=== PATIENT | female | born 1950 | race Caucasian/White ===

== ENCOUNTER 2016-11-17 04:50 | Observation (INO) | payer OTHER ==
[~2016-11-17] VITALS: Ht 165.1 cm; Wt 80.0 kg
[~2016-11-17 04:50] MED LIST: DULCOLAX5 MG PO; MULTIVITAMIN1 EAC2 PO; PEPCID40 MG PO; PREDNISONE20 MG PO; SIMVASTATIN20 MG PO; SYNTHROID75 MCG PO
[2016-11-17 05:32] LABS: CHLORIDE 105 mEq/L (99-109); POTASSIUM 3.6 mEq/L (3.7-5.4); SODIUM 142 mEq/L (136-147)
[2016-11-17 05:34] LABS: GLUCOSE 107 mg/dL (70-99)
[2016-11-17 05:35] LABS: ANION GAP 10 MEQ/L (2-14)
[2016-11-17 05:38] LABS: GFR ESTIMATE (CALCULATED) > 59 mL/min/
[2016-11-17 05:39] LABS: UREA NITROGEN (BUN) 17 mg/dL (9-23)
[2016-11-17 05:40] LABS: HEMATOCRIT 40.1 % (36.0-46.0); MCH 30.9 PG (29.0-34.0); MCHC 33.4 G/DL (30.0-36.0); MCV 92.6 FL (83-99); MEAN PLAT.VOLUME 9.7 uM^3 (9.5-12.4); PLATELET COUNT 285 K/uL (156-360); RBC DIS.WIDTH-CV 13.2 % (11.8-14.6); RBC DIS.WIDTH-SD 43.5 % (39-53); RED BLOOD COUNT 4.33 M/uL (3.80-5.20); WHITE BLOOD COUNT 7.3 K/uL (4.1-10.2)
[2016-11-17 08:21] LABS: TROP-I INTERPRETATION NEGATIVE; TROPONIN-I < 0.01 ng/mL (0.0-0.30)
[2016-11-17] MEDS ORDERED: MAGNESIUM OXID200 MG PO (10:17)
[2016-11-17] MEDS ORDERED: RANITIDINE HCL150 MG PO (10:17)
[2016-11-17] MEDS ORDERED: BENADRYL25 MG PO (10:18)
[2016-11-17] MEDS ORDERED: ASPIR 8181 M1 PO (10:18)
[2016-11-17 16:10] VITALS: BP 136/85
[2016-11-17 20:20] VITALS: BP 136/74
[2016-11-18 00:34] VITALS: BP 128/76
[2016-11-18 04:57] VITALS: BP 137/82
[2016-11-18 07:18] LABS: HEMATOCRIT 35.7 % (36.0-46.0); MCHC 32.2 G/DL (30.0-36.0); MCV 93.2 FL (83-99); MEAN PLAT.VOLUME 10.1 uM^3 (9.5-12.4); PLATELET COUNT 255 K/uL (156-360); RBC DIS.WIDTH-CV 13.7 % (11.8-14.6); RBC DIS.WIDTH-SD 46.5 % (39-53); RED BLOOD COUNT 3.83 M/uL (3.80-5.20); WHITE BLOOD COUNT 5.9 K/uL (4.1-10.2)
[2016-11-18 07:42] VITALS: BP 120/96
[2016-11-18 07:49] LABS: ANION GAP 9 MEQ/L (2-14); CHLORIDE 107 MEQ/L (99-109); GFR ESTIMATE (CALCULATED) > 59 mL/min/; GLUCOSE 93 mg/dL (70-99); SAMPLE HEMOLYSIS CHECK 0; SAMPLE ICTERIC CHECK 0; SAMPLE LIPEMIA CHECK 0; SODIUM 143 MEQ/L (136-147); UREA NITROGEN (BUN) 18 mg/dL (9-23)
[2016-11-18 07:57] LABS: POTASSIUM 4.6 MEQ/L (3.7-5.4)
[2016-11-18] MEDS ORDERED: SYNTHROID75 MCG PO (11:22)
== END 2016-11-18 13:19 | disposition home or self-care (01) ==
LOC: EME 04:50 → 5WEST 12:49 → EDOF 12:49 → 5WEST 15:43
PROVIDERS: Nurse Practitioner Adult Health
DX: I95.1 Orthostatic hypotension (principal); E86.0 Dehydration; R19.7 Diarrhea, unspecified; E03.9 Hypothyroidism, unspecified; E78.5 Hyperlipidemia, unspecified; Z91.120 Patient's intentional underdosing of medication regimen due to financial hardship; T38.1X6A Underdosing of thyroid hormones and substitutes, initial encounter; T46.6X6A Underdosing of antihyperlipidemic and antiarteriosclerotic drugs, initial encounter; T47.0X6A Underdosing of histamine H2-receptor blockers, initial encounter; T39.396A Underdosing of other nonsteroidal anti-inflammatory drugs [NSAID], initial encounter; Z82.49 Family history of ischemic heart disease and other diseases of the circulatory system; Z83.3 Family history of diabetes mellitus; Z88.5 Allergy status to narcotic agent; Z88.1 Allergy status to other antibiotic agents; Z91.030 Bee allergy status; Z79.82 Long term (current) use of aspirin
CPT/HCPCS: 71020; 80048; 84484; 85027; 87493; 87506; 93005; 99281; 99285; G0378; J2405; J7030; J7120; S0028